=== PATIENT | male | born 1990 | race Caucasian/White ===

== ENCOUNTER 2021-07-17 15:44 | Outpatient (CLI) | payer OTHER, SELFPAY ==
--- NOTE | 2021-07-17 16:30 | DI.RAD_ITS ---
Exam(s) XR WRIST LT COMP NAVICULAR EXAM: XR WRIST LT COMP NAVICULAR CLINICAL HISTORY: PAIN LT WRIST M25.532, ? FX VS SPRAIN. TECHNIQUE: 2D digital imaging was performed of the left wrist. Four images were obtained. Scaphoid , PA, oblique and lateral views were obtained. COMPARISON: No exams were available for comparison FINDINGS: BONES: No acute fracture is present. No bony destructive lesion is seen. JOINTS: The carpal bones are normally aligned. SOFT TISSUE: Normal. IMPRESSION: No acute fracture or dislocation. DATA REPOSITORY: RADIATION DOSE DELIVERED:
--- NOTE | 2021-07-17 17:00 | DI.VRAD_ITS ---
PROCEDURE INFORMATION: Exam: XR Left Wrist Exam date and time: 07/17/2021 3:58 PM Age: 31 years old Clinical indication: Other: Pain left wrist, fall 3 weeks ago. TECHNIQUE: Imaging protocol: XR Left wrist. Views: 3 or more views. COMPARISON: No relevant images were readily available for comparison purposes. 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 No acute fracture or dislocation. No significant degenerative changes. Soft tissues: Unremarkable soft tissues. IMPRESSION: No acute findings. Dictated and Authenticated by: Efrain Demarco MD. Ordering:RAFAEL Acevedo MD
== END 2021-07-17 16:04 ==
PROVIDERS: Visit Provider Physician Assistant Medical
DX: M25.532 Pain in left wrist (principal)
CPT/HCPCS: 73110